=== PATIENT | male | born 1960 | race Caucasian/White ===

== ENCOUNTER 2017-04-01 12:05 | Emergency (ER) | payer OTHER, MEDICAID ==
[~2017-04-01] VITALS: Ht 177.8 cm; Wt 81.8 kg
[~2017-04-01 12:05] MED LIST: COLACE 100100 MG/CAP PO; DESYREL 100MG100 MG PO; FLOMAX 0.40.4 MG/CAP PO; GLUCOTROL 5M5 MG/TAB PO; IBU400 MG PO; LOPRESSOR 225 MG/TAB PO; MONOPRIL40 MG PO; NEURONTIN100 MG/CAP PO; NO HOME MEDICATIONS; NORCO 325 MG-51 TAB PO; PHENERGAN 25 TA25 MG PO; PHENERGAN25 MG RC; PROTONIX 40MG T40 MG PO; PROZAC 10MG10 MG PO; VITAMIN D 50,1.25 MG PO; ZOFRAN 4MG T4 MG/TAB PO
[2017-04-01 12:09] VITALS: BP 135/69; PULSE 62; TEMP 98.3
[2017-04-01 13:10] LABS: BASO % 0.2 % (0.0-2.0); EOS # 0.1 (0.0-0.7); EOS % 1.2 % (0-4.0); GRAN # 6.5 (1.4-6.5); LYMPH # 1.1 (1.2-3.4); MEAN CELL VOLUME 88 fl (80.0-100.0); MEAN CORPUSCULAR HGB CONC 33 g/dl (33.0-37.0); MONO # 0.8 (0.1-0.6); PLATELET COUNT 196 K/mm3 (130-400); RED BLOOD COUNT 3.89 M/mm3 (4.20-5.60); WHITE BLOOD COUNT 8.6 K/mm3 (4.8-10.8)
[2017-04-01 13:11] LABS: HEMATOCRIT 34.1 % (42.0-52.0); HEMOGLOBIN 11.4 g/dl (13.5-18.0); MEAN CORPUSCULAR HEMOGLOBIN 29 pg (27.0-31.0)
[2017-04-01 13:23] LABS: ADJUSTED CALCIUM 9.3 mg/dL (8.4-10.2); ALANINE AMINOTRANSFERASE 22 U/L (21-72); ALBUMIN 3.3 gm/dL (3.5-5.0); ALKALINE PHOSPHATASE 117 U/L (50-136); ANION GAP 9 mmol/L (7-16); BILIRUBIN,TOTAL 0.6 mg/dL (0.0-1.0); BLOOD UREA NITROGEN 31 mg/dL (9-20); CALCIUM 8.7 mg/dL (8.4-10.2); CARBON DIOXIDE 25 mmol/L (22-30); CHLORIDE 104 mmol/L (98-107); CREATININE, serum 1.54 mg/dL (0.66-1.25); GLUCOSE 180 mg/dL (74-106); POTASSIUM 4.7 mmol/L (3.4-5.0); SODIUM 138 mmol/L (137-145); TOTAL PROTEIN 6.5 gm/dL (6.4-8.2)
[2017-04-01] MEDS ORDERED: BACTRIM DS 8001 TAB PO (13:41)
[2017-04-01] MEDS ORDERED: CEPHALEXIN500 M1 PO (13:41)
[2017-04-01] MEDS ORDERED: DIAMOX 250MG250 MG PO (14:30)
[2017-04-01] MEDS ORDERED: NORVASC 10MG10 MG PO (14:30)
[2017-04-01] MEDS ORDERED: ALPHAGAN OPHTH D5 ML OU (14:31)
[2017-04-01] MEDS ORDERED: COSOPT 2%-0.5%10 ML OU (14:33)
[2017-04-01] MEDS ORDERED: VISTARIL 2525 MG/CAP PO (14:37)
[2017-04-01] MEDS ORDERED: XALATAN EYE DROPS OU (14:38)
[2017-04-01] MEDS ORDERED: ZOLOFT 100MG100 MG PO (14:38)
== END 2017-04-01 14:10 | disposition home or self-care (01) ==
LOC: COL.ER 12:05
PROVIDERS: Physician Assistant Medical
DX: E11.621 Type 2 diabetes mellitus with foot ulcer (principal); L97.519 Non-pressure chronic ulcer of other part of right foot with unspecified severity; S90.821A Blister (nonthermal), right foot, initial encounter; X58.XXXA Exposure to other specified factors, initial encounter; Z79.84 Long term (current) use of oral hypoglycemic drugs

== ENCOUNTER 2024-06-04 19:49 | Emergency (ER) | payer OTHER ==
[~2024-06-04] VITALS: Ht 177.8 cm; Wt 90.9 kg
[~2024-06-04 19:49] MED LIST changes: +ALPHAGAN OPHTH D5 ML OU; +BACTRIM DS 8001 TAB PO; +CEPHALEXIN500 M1 PO; +COSOPT 2%-0.5%10 ML OU; +DIAMOX 250MG250 MG PO; +NORVASC 10MG10 MG PO; +VISTARIL 2525 MG/CAP PO; +XALATAN EYE DROPS OU; +ZOLOFT 100MG100 MG PO
[2024-06-04 19:51] VITALS: TEMP 99.1
[2024-06-04 20:02] LABS: BASO % 0.5 % (0.0-2.0); EOS # 0.1 K/mm3 (0.0-0.7); EOS % 1.5 % (0.0-4.0); GRAN # 4.8 K/mm3 (1.4-6.5); GRAN % 65.6 % (42.2-75.2); HEMOGLOBIN 17.9 g/dl (13.5-18.0); LYMPH # 1.8 K/mm3 (1.2-3.4); LYMPH % 24.6 % (20.0-51.0); MEAN CELL VOLUME 86 fl (80.0-100.0); MEAN CORPUSCULAR HEMOGLOBIN 30 pg (27-31); MEAN CORPUSCULAR HGB CONC 34 g/dl (33.0-37.0); MEAN PLATELET VOLUME 9.7 fl (7.4-10.4); MONO # 0.6 K/mm3 (0.1-0.6); MONO % 7.5 % (1.7-9.3); PLATELET COUNT 170 K/mm3 (130-400); RED BLOOD COUNT 6.06 M/mm3 (4.20-5.60); REDCELL DISTRIBUTION WIDTH-CV 12.5 % (11.5-14.5)
[2024-06-04 20:03] LABS: HEMATOCRIT 52.1 % (42.0-52.0)
[2024-06-04 20:07] LABS: INR 1.1 (0.8-3.0); PROTHROMBIN TIME 11.5 SECONDS (9.7-12.8)
[2024-06-04 20:10] LABS: PARTIAL THROMBOPLASTIN TIME 36.3 SECONDS (26.0-37.0)
[2024-06-04 20:22] LABS: ALANINE AMINOTRANSFERASE 29 U/L (0-55); ALBUMIN 3.5 g/dL (3.4-4.8); ALKALINE PHOSPHATASE 127 U/L (40-150); ANION GAP 13 mmol/L (7-16); AST,SGOT 24 U/L (5-34); BILIRUBIN,TOTAL 0.7 mg/dL (0.2-1.2); BLOOD UREA NITROGEN 28 mg/dL (8-26); CALCIUM 9.1 mg/dL (8.4-10.2); CHLORIDE 104 mEq/L (98-107); CREATININE, serum 1.39 mg/dL (0.72-1.25); GLUCOSE 215 mg/dL (70-99); POTASSIUM 3.4 mEq/L (3.5-4.5); SODIUM 138 mEq/L (136-145); TOTAL PROTEIN 6.9 g/dl (6.2-8.1)
[2024-06-04 20:35] LABS: TROPONIN-I < 0.010 ng/mL (0.00-0.033)
[2024-06-04] MEDS ORDERED: LR 1,000 ML IV ONE (20:45)
[2024-06-04 22:19] VITALS: BP 155/93; PULSE 90
== END 2024-06-04 22:19 | disposition home or self-care (01) ==
LOC: COL.ER 19:49
PROVIDERS: Emergency Medicine
DX: I10 Essential (primary) hypertension (principal)
CPT/HCPCS: J7120